=== PATIENT | female | born 1955 | race Caucasian/White ===

== ENCOUNTER 2020-02-01 11:29 | Inpatient (IN) | payer BC, OTHER ==
[2020-02-01] MEDS ORDERED: NA CHLORIDE 0.9% 1,000 ML ONE ×2 (12:15→14:06)
[2020-02-01] MEDS ORDERED: MORPHINE 2 MG/ML SYR ONE ×2 (12:15→14:25)
[2020-02-01] MEDS ORDERED: ONDANSETRON 4 MG/2 ML VIAL ONE ×2 (12:15→17:38)
[2020-02-01 12:31] LABS: Absolute Lymphocytes (CBC) 0.7 K/uL (0.7-4.9); Basophils % 0.1 % (0-1.3); Hematocrit 47.4 % (36.0-45.0); Lymphocytes % 2.5 % (15.3-44.8); MPV 10.1 fL (7.6-11.3); RBC Red Blood Cell Count 5.48 M/uL (3.86-4.86)
[2020-02-01 12:49] LABS: Albumin 3.6 g/dL (3.4-5.0); Bilirubin Direct 0.3 mg/dL (0-0.2); Potassium 3.3 mmol/L (3.5-5.1); Protein, Total 8.1 g/dL (6.4-8.2)
--- NOTE | 2020-02-01 13:29 | RAD REPORT ---
EXAM DESCRIPTION: CTAbdomen Pelvis W Contrast - 02/01/2020 1:13 pm CLINICAL HISTORY: Abdominal pain. ABD PAIN COMPARISON: No comparisons TECHNIQUE: Biphasic CT imaging of the abdomen and pelvis was performed with 100 ml non-ionic IV cont rast. All CT scans are performed using dose optimization technique as appropriate and may include automated exposure control or mA/KV adjustment according to patient size. FINDINGS: Linear subsegmental atelectasis is present in the left lung base. Moderate hiatal hernia. Several gallstones are present in the gallbladder. The liver, spleen, pancreas, left adrenal gland an d kidneys show no acute process. Nonspecific right adrenal mass is present measuring 23 mm. Mucosal thickening is present involving the colon from the level of the splenic flexure to the sigmoi d colon. Several diverticula are present in the sigmoid colon. Mild free fluid is seen in the pelvis. No pneumoperitoneum. No bowel obstruction. The appendix is not identified as a discrete structure, h owever, no secondary findings of appendicitis are identified. No evidence of significant lymphadeno jamee. Moderate lumbosacral degenerative changes. IMPRESSION: Moderate left-sided colitis pattern is present. Mild free fluid is seen in the pelvis. Sigmoid diverticulosis is seen without evidence of acute diverticulitis. Cholelithiasis. 23 mm nonspecific right adrenal mass. Consider followup nonemergent MR adrenal protocol. Moderate hiatal hernia.
[2020-02-01] MEDS ORDERED: CIPROFLOXACIN 400mg IV 400 MG/200 ML BAG IV ONE (14:06)
--- NOTE | 2020-02-01 14:06 | ER ---
Nurse's Notes [facility] Name: Светлана Burns Age: 64 yrs Sex: Female : 1955 Arrival Date: 02/01/2020 Time: 11:35 Bed 23 Private MD: Diagnosis: Infectious gastroenteritis and colitis, unspecified Presentation: 01/31 11:53 Chief complaint: Patient states: Abd pain with N/V for 24 hours. Sent by Ezekiel to r/o ll1 diverticulitis flare-up. Coronavirus screen: Proceed with normal triage. Patient denies a cough. Patient denies shortness of breath or difficulty breathing. Patient denies measured and/or subjective temperature greater than 100.4F prior to today's visit. Patient denies travel on a cruise ship or to a country the [facility] currently lists as an affected area. Patient denies contact with known and/or suspected case of COVID-19. Ebola Screen: Patient denies travel to an Ebola-affected area in the 21 days before illness onset. Initial Sepsis Screen: Does the patient meet any 2 criteria? No. Patient's initial sepsis screen is negative. Does the patient have a suspected source of infection? No. Patient's initial sepsis screen is negative. Risk Assessment: Do you want to hurt yourself or someone else? Patient reports no desire to harm self or others. Onset of symptoms was January 31, 2020. 11:53 Method Of Arrival: Wheelchair ll1 11:53 Acuity: RAE 3 ll1 Historical: - Allergies: 11:55 No Known Allergies; ll1 - PMHx: 11:55 Diverticulitis; Hypertension; GERD; ll1 - Immunization history:: Adult Immunizations up to date. - Social history:: Patient/guardian denies using alcohol, street drugs, tobacco products, Smoking status: Patient denies any tobacco usage or history of. Screenin:55 Abuse screen: Denies threats or abuse. Nutritional screening: No deficits noted. ll1 Tuberculosis screening: No symptoms or risk factors identified. Fall Risk None identified. IV access (20 points). Gait- Weak (10 pts.). Total Haddad Fall Scale indicates Low Risk Score (25-44 pts). Fall prevention measures have been instituted. Side Rails Up X 2 Frequent Obs/Assesments occuring As available Patient and Family Educated on Fall Prevention Program and strategies. Assessment: 12:19 General: Appears uncomfortable, Behavior is calm, cooperative, appropriate for age. ll1 Pain: Complains of pain in abdomen Pain currently is 10 out of 10 on a pain scale. Quality of pain is described as aching, Pain began 1 day ago. Neuro: No deficits noted. Cardiovascular: No deficits noted. Respiratory: No deficits noted. GI: Bowel sounds present X 4 quads. Abd is soft and non tender X 4 quads. Reports lower abdominal pain, upper abdominal pain, nausea, vomiting. : No deficits noted. 13:15 Reassessment: Patient appears in no apparent distress at this time. No changes from ll1 previously documented assessment. Patient and/or family updated on plan of care and expected duration. Pain level reassessed. Patient is alert, oriented x 3, equal unlabored respirations, skin warm/dry/pink. 14:15 Reassessment: Patient appears in no apparent distress at this time. No changes from ll1 previously documented assessment. Patient and/or family updated on plan of care and expected duration. Pain level reassessed. Patient is alert, oriented x 3, equal unlabored respirations, skin warm/dry/pink. 15:15 Reassessment: Patient appears in no apparent distress at this time. No changes from ll1 previously documented assessment. Patient and/or family updated on plan of care and expected duration. Pain level reassessed. Patient is alert, oriented x 3, equal unlabored respirations, skin warm/dry/pink. 16:15 Reassessment: Patient appears in no apparent distress at this time. No changes from ll1 previously documented assessment. Patient and/or family updated on plan of care and expected duration. Pain level reassessed. Patient is alert, oriented x 3, equal unlabored respirations, skin warm/dry/pink. 17:15 Reassessment: Patient appears in no apparent distress at this time. No changes from ll1 previously documented assessment. Patient and/or family updated on plan of care and expected duration. Pain level reassessed. Patient is alert, oriented x 3, equal unlabored respirations, skin warm/dry/pink. 18:15 Reassessment: Patient appears in no apparent distress at this time. No changes from ll1 previously documented assessment. Patient and/or family updated on plan of care and expected duration. Pain level reassessed. Patient is alert, oriented x 3, equal unlabored respirations, skin warm/dry/pink. 19:15 Reassessment: Patient appears in no apparent distress at this time. No changes from ll1 previously documented assessment. Patient and/or family updated on plan of care and expected duration. Pain level reassessed. Patient is alert, oriented x 3, equal unlabored respirations, skin warm/dry/pink. Vital Signs: 11:53 BP 120 / 78; Pulse 84; Resp 17; Temp 98.9; Pulse Ox 97% ; Pain 10/10; ll1 12:18 BP 137 / 73; Pulse 70; Resp 17; Pulse Ox 96% ; Pain 10/10; ll1 13:05 BP 143 / 66; Pulse 70; Resp 17; Pulse Ox 99% ; ll1 15:33 BP 136 / 74; Pulse 66; Resp 18; Pulse Ox 95% on R/A; ll1 18:14 BP 140 / 63; Pulse 72; Resp 17; Temp 98.5; Pulse Ox 95% ; ll1 19:34 BP 159 / 84; Pulse 72; Resp 17; Pulse Ox 95% on R/A; ll1 ED Course: 11:35 Patient arrived in ED. mr 11:46 Garret Pineda, MARKUS is Primary Nurse. ll1 11:47 Feng Dominguez PA is PHCP. cp 11:47 Luisito Manning MD is Attending Physician. cp 11:54 Triage completed. ll1 11:55 Arm band placed on Patient placed in an exam room, on a stretcher. ll1 12:05 Inserted saline lock: 20 gauge in right antecubital area, using aseptic technique. ll1 Blood collected. 12:18 Patient has correct armband on for positive identification. Bed in low position. Call ll1 light in reach. Side rails up X2. Pulse ox on. NIBP on. 12:58 Notified Nurse Practitioner and/or Physician Beauty Shop Manager of a critical lab result(s), sv [id number]. 13:12 CT Abd/Pelvis - IV Contrast Only In Process Unspecified. EDMS 13:23 CBC Smear Scan Sent. sv 14:06 Zev Berkowitz DO is Hospitalizing Provider. cp 19:40 No provider procedures requiring assistance completed. Patient admitted, IV remains in ll1 place. Administered Medications: 12:17 Drug: Zofran (Ondansetron) 4 mg Route: IVP; Site: right antecubital; 1 13:07 Follow up: Response: No adverse reaction; RASS: Alert and Calm (0) [facility] 12:17 Drug: NS 0.9% 1000 ml Route: IV; Rate: 1000 ml/hr; Site: right antecubital; 1 13:09 Follow up: Response: No adverse reaction; RASS: Alert and Calm (0); IV Status: ll1 Completed infusion; IV Intake: 1000ml 12:18 Drug: morphine 2 mg Route: IVP; Site: right antecubital; 1 13:07 Follow up: Response: No adverse reaction; Pain is decreased; RASS: Alert and Calm (0) [facility] 14:25 Drug: NS 0.9% 1000 ml Route: IV; Rate: 100 ml/hr; Site: right antecubital; 1 18:18 Follow up: Response: No adverse reaction; RASS: Alert and Calm (0); IV Status: Infusion 1 continued; IV Intake: 200ml 19:43 Follow up: Response: No adverse reaction; IV Status: Completed infusion; IV Intake: ll1 400ml 14:26 Drug: morphine 2 mg Route: IVP; Site: right antecubital; 1 17:32 Follow up: Response: No adverse reaction; Pain is decreased; RASS: Alert and Calm (0) [facility] 14:55 Drug: metroNIDAZOLE 500 mg Volume: 100 ml; Route: IVPB; Infused Over: 30 mins; Site: [facility] right antecubital; 16:18 Follow up: Response: No adverse reaction; RASS: Alert and Calm (0); IV Status: ll1 Completed infusion; IV Intake: 100ml 16:18 Drug: Ciprofloxacin 400 mg Volume: 200 ml; Route: IVPB; Infused Over: 60 mins; Site: [facility] right antecubital; 18:17 Follow up: Response: No adverse reaction; RASS: Alert and Calm (0); IV Status: ll1 Completed infusion; IV Intake: 200ml Intake: 13:09 IV: 1000ml; Total: 1000ml. 1 16:18 IV: 100ml; Total: 1100ml. 1 18:17 IV: 200ml; Total: 1300ml. 1 18:18 IV: 200ml; Total: 1500ml. 1 19:43 IV: 400ml; Total: 1900ml. 1 Outcome: 14:06 Decision to Hospitalize by Provider. cp 19:40 Admitted to Med/surg accompanied by tech, room 210, Report called to Leigh Reyes [facility] 19:40 Condition: stable 19:40 Instructed on the need for admit. 19:50 Patient left the ED. 1 Signatures: Dispatcher [employer] EDCarolina Deras RN RN sv Rivera, Mary mr Page, Corey, PA PA cp Lewis, Lynsay RN RN [facility]
[2020-02-01] MEDS ORDERED: METRONIDAZOLE 500mg IVPB 500 MG/100 ML BAG IV ONE (14:07)
--- NOTE | 2020-02-01 14:07 | EDPHYS ---
Physician Documentation [facility] Name: Светлана Burns Age: 64 yrs Sex: Female : 1955 Arrival Date: 02/01/2020 Time: 11:35 Bed 23 Private MD: ED Physician Luisito Manning HPI: 01/31 12:10 This 64 yrs old Female presents to ER via Wheelchair with complaints of cp Abdominal Pain, Vomiting. 12:10 The patient presents with abdominal pain in the lower abdomen. Onset: The cp symptoms/episode began/occurred 1 day(s) ago. The symptoms do not radiate. Associated signs and symptoms: Pertinent positives: nausea and vomiting, constipation, Pertinent negatives: blood in stools, chest pain, diarrhea, fever. The symptoms are described as constant. Modifying factors: the symptoms are aggravated by pressure. Historical: - Allergies: 11:55 No Known Allergies; ll1 - PMHx: 11:55 Diverticulitis; Hypertension; GERD; ll1 - Immunization history:: Adult Immunizations up to date. - Social history:: Patient/guardian denies using alcohol, street drugs, tobacco products, Smoking status: Patient denies any tobacco usage or history of. ROS: 12:15 Constitutional: Negative for body aches, chills, fever, poor PO intake. cp 12:15 Eyes: Negative for injury, pain, redness, and discharge. cp 12:15 ENT: Negative for ear pain, sore throat, difficulty swallowing, difficulty handling secretions. 12:15 Cardiovascular: Negative for chest pain, palpitations. 12:15 Respiratory: Negative for cough, wheezing. 12:15 Abdomen/GI: Positive for abdominal pain, nausea and vomiting, constipation, Negative for diarrhea, hematemesis, black/tarry stool, rectal bleeding. 12:15 : Negative for urinary symptoms. 12:15 Neuro: Negative for altered mental status, headache, weakness. 12:15 All other systems are negative. Exam: 12:15 Head/Face: Normocephalic, atraumatic. cp 12:15 Constitutional: The patient appears in no acute distress, alert, awake, non-diaphoretic, non-toxic, well developed, well nourished, uncomfortable. 12:15 Eyes: Periorbital structures: appear normal, Conjunctiva: normal, no exudate, no injection, Sclera: no appreciated abnormality, Lids and lashes: appear normal, bilaterally. 12:15 ENT: External ear(s): are unremarkable, Nose: is normal, Mouth: Lips: 12:15 Chest/axilla: Exam negative for Inspection: normal, Palpation: is normal, no crepitus, no tenderness. 12:15 Cardiovascular: Rate: normal, Rhythm: regular, Edema: is not appreciated, JVD: is not appreciated. 12:15 Respiratory: the patient does not display signs of respiratory distress, Respirations: normal, no use of accessory muscles, no retractions, labored breathing, is not present, Breath sounds: are clear throughout, no decreased breath sounds, no stridor, no wheezing. 12:15 Abdomen/GI: Inspection: abdomen appears normal, Bowel sounds: active, all quadrants, Palpation: soft, in all quadrants, moderate abdominal tenderness, in the right lower quadrant and left lower quadrant, rebound tenderness, is not appreciated, voluntary guarding, is elicited in the right lower quadrant and left lower quadrant. 12:15 Neuro: Orientation: to person, place \T\ time. Mentation: is normal. Vital Signs: 11:53 BP 120 / 78; Pulse 84; Resp 17; Temp 98.9; Pulse Ox 97% ; Pain 10/10; ll1 12:18 BP 137 / 73; Pulse 70; Resp 17; Pulse Ox 96% ; Pain 10/10; ll1 13:05 BP 143 / 66; Pulse 70; Resp 17; Pulse Ox 99% ; ll1 15:33 BP 136 / 74; Pulse 66; Resp 18; Pulse Ox 95% on R/A; ll1 18:14 BP 140 / 63; Pulse 72; Resp 17; Temp 98.5; Pulse Ox 95% ; ll1 19:34 BP 159 / 84; Pulse 72; Resp 17; Pulse Ox 95% on R/A; ll1 MDM: 11:56 Patient medically screened. cp 14:05 Data reviewed: vital signs, nurses notes, lab test result(s), radiologic studies, and cp as a result, I will admit patient. Counseling: I had a detailed discussion with the patient and/or guardian regarding: the historical points, exam findings, and any diagnostic results supporting the discharge/admit diagnosis, lab results, radiology results, the need for further work-up and treatment in the hospital. 01/31 12:05 Order name: Basic Metabolic Panel; Complete Time: 13:51 cp 01/31 12:05 Order name: CBC with Diff cp 01/31 12:05 Order name: Hepatic Function; Complete Time: 13:51 cp 01/31 12:05 Order name: Lipase; Complete Time: 13:51 cp 01/31 12:05 Order name: Urine Microscopic Only cp 01/31 13:04 Order name: CBC Smear Scan EDIN 01/31 13:58 Order name: Procalcitonin 01/31 13:58 Order name: Lactate; Complete Time: 14:59 cp 01/31 13:58 Order name: Blood Culture Pedi (1) cp 01/31 17:51 Order name: Basic Metabolic Panel EDIN 01/31 17:51 Order name: Basic Metabolic Panel EDIN 01/31 17:51 Order name: CBC with Automated Diff EDIN 01/31 17:51 Order name: CBC with Automated Diff EDIN 01/31 17:51 Order name: Procalcitonin EDIN 01/31 12:05 Order name: IV Saline Lock; Complete Time: 12:05 cp 01/31 12:05 Order name: Labs collected and sent; Complete Time: 12:06 cp 01/31 12:05 Order name: Urine Dipstick-Ancillary (obtain specimen); Complete Time: 18:18 cp 01/31 13:01 Order name: CT Abd/Pelvis - IV Contrast Only; Complete Time: 13:51 cp 01/31 17:51 Order name: CONS Physician Consult EDIN 01/31 17:51 Order name: NPO EDIN 01/31 17:51 Order name: Procalcitonin EDIN 01/31 18:02 Order name: Urine Dipstick--Ancillary (enter results) bd 01/31 18:45 Order name: Urine Dipstick-Ancillary EDIN Administered Medications: 12:17 Drug: Zofran (Ondansetron) 4 mg Route: IVP; Site: right antecubital; ll1 13:07 Follow up: Response: No adverse reaction; RASS: Alert and Calm (0) ll1 12:17 Drug: NS 0.9% 1000 ml Route: IV; Rate: 1000 ml/hr; Site: right antecubital; ll1 13:09 Follow up: Response: No adverse reaction; RASS: Alert and Calm (0); IV Status: ll1 Completed infusion; IV Intake: 1000ml 12:18 Drug: morphine 2 mg Route: IVP; Site: right antecubital; 1 13:07 Follow up: Response: No adverse reaction; Pain is decreased; RASS: Alert and Calm (0) [facility] 14:25 Drug: NS 0.9% 1000 ml Route: IV; Rate: 100 ml/hr; Site: right antecubital; 1 18:18 Follow up: Response: No adverse reaction; RASS: Alert and Calm (0); IV Status: Infusion ll1 continued; IV Intake: 200ml 19:43 Follow up: Response: No adverse reaction; IV Status: Completed infusion; IV Intake: ll1 400ml 14:26 Drug: morphine 2 mg Route: IVP; Site: right antecubital; 1 17:32 Follow up: Response: No adverse reaction; Pain is decreased; RASS: Alert and Calm (0) [facility] 14:55 Drug: metroNIDAZOLE 500 mg Volume: 100 ml; Route: IVPB; Infused Over: 30 mins; Site: ll right antecubital; 16:18 Follow up: Response: No adverse reaction; RASS: Alert and Calm (0); IV Status: ll1 Completed infusion; IV Intake: 100ml 16:18 Drug: Ciprofloxacin 400 mg Volume: 200 ml; Route: IVPB; Infused Over: 60 mins; Site: ll right antecubital; 18:17 Follow up: Response: No adverse reaction; RASS: Alert and Calm (0); IV Status: ll1 Completed infusion; IV Intake: 200ml Disposition: 02/01/20 14:06 Hospitalization ordered by Zev Berkowitz for Inpatient Admission. Preliminary diagnosis is Infectious gastroenteritis and colitis, unspecified. - Bed requested for Telemetry/MedSurg (Inpatient). - Status is Inpatient Admission. ll1 - Condition is Stable. - Problem is new. - Symptoms have improved. Addendum: 02/08/2020 07:08 Co-signature as Attending Physician, Luisito Manning MD. r n Signatures: Dispatcher [employer] EDLuisito Bear MD MD rn Smirch, Shelby, RN RN ss Attema, Lee, OUTREACH WORKER-C OUTREACH WORKER-Cla1 Feng Dominguez PA PA cp Lewis, Lynsay, RN RN ll1 Corrections: (The following items were deleted from the chart) 01/31 18:09 14:06 Hospitalization Ordered by Zev Berkowitz DO for Inpatient Admission. Preliminary ss diagnosis is Infectious gastroenteritis and colitis, unspecified. Bed requested for Telemetry/MedSurg (Inpatient). Status is Inpatient Admission. Condition is Stable. Problem is new. Symptoms have improved. cp 19:50 18:09 02/01/2020 14:06 Hospitalization Ordered by Zev Berkowitz DO for Inpatient ll1 Admission. Preliminary diagnosis is Infectious gastroenteritis and colitis, unspecified. Bed requested for Telemetry/MedSurg (Inpatient). Status is Inpatient Admission. Condition is Stable. Problem is new. Symptoms have improved. ss
--- NOTE | 2020-02-01 15:27 | P.HP ---
Certification for Inpatient Patient admitted to: Inpatient With expected LOS: >2 Midnights Patient will require the following post-hospital care: None Practitioner: I am a practitioner with admitting privileges, knowledge of patient current condition, hospital course, and medical plan of care. Services: Services provided to patient in accordance with Admission requirements found in Title 42 Section 412.3 of the Code of Federal Regulations <Cy Herron - Last Filed: 02/01/20 15:17> Patient admitted to: Inpatient With expected LOS: >2 Midnights <Zev Berkowitz - Last Filed: 02/01/20 17:10> Patient History Date of Service: 02/01/20 Primary Care Provider: Neto Reason for admission: Moderate left colitis History of Present Illness: 64-year-old female with history of hypertension, hypothyroidism, diverticulitis presented to the emergency department with a 1 day history of left-sided abdominal pain, nausea, and vomiting. During her evaluation in the emergency department patient was found to have an elevated white blood cell count at 27, a low potassium at 3.3, and a CT scan showing a moderate left colitis with mild free fluid in the pelvis without signs of perforation or abscess. At this time. ER provider reached out to the hospitalist team for further evaluation management. When I saw the patient in the emergency department she appeared uncomfortable. Vital signs were within normal limits. Patient did not appear septic. Patient reported that she has been unable to tolerate anything by mouth throughout the course of the day. Patient will be admitted for further evaluation and this condition. Home medications list reviewed: Yes - Past Medical/Surgical History Has patient received pneumonia vaccine in the past: No Diabetic: No -: Hypertension -: Hypothyroidism -: GERD -: Tubal ligation -: D and C Psychosocial/ Personal History: Patient lives at home with her - Social History Smoking Status: Never smoker Alcohol use: No CD- Drugs: No Caffeine use: Yes Place of Residence: Home <Cy Herron - Last Filed: 02/01/20 15:17> Date of Service: 02/01/20 History of Present Illness: Patient seen and examined. Case discussed at length with nurse practitioner. Agree with physical exam, evaluation, and plan of care. - Family History Family History: Reviewed- Non-Contributory <Zev Berkowitz - Last Filed: 02/01/20 17:10> Review of Systems General: Unremarkable Eyes: Unremarkable ENT: Unremarkable Respiratory: Unremarkable Cardiovascular: Unremarkable Gastrointestinal: Nausea, Vomiting, Abdominal Pain Genitourinary: Unremarkable Musculoskeletal: Unremarkable Neurological: Unremarkable <Cy Herron - Last Filed: 02/01/20 15:17> Lymphatics: Unremarkable <Zev Berkowitz - Last Filed: 02/01/20 17:10> Physical Examination - Physical Exam General: Alert, In no apparent distress, Oriented x3 HEENT: Atraumatic, Normocephalic Neck: Supple Respiratory: Clear to auscultation bilaterally, Normal air movement Cardiovascular: No edema, Normal pulses Capillary refill: <2 Seconds Gastrointestinal: Normal bowel sounds, Tenderness (Moderate left-sided abdominal tenderness) Musculoskeletal: No clubbing, No swelling Integumentary: No rashes Neurological: Normal speech, Normal tone Lymphatics: No axilla or inguinal lymphadenopathy - Studies Laboratory Data (last 24 hrs) 02/01/20 12:00: WBC 27.6 H*, Hgb 15.5 H, Hct 47.4 H, Plt Count 275 02/01/20 12:00: Sodium 139, Potassium 3.3 L, BUN 22 H, Creatinine 1.03, Glucose 195 H, Total Bilirubin 1.0, AST 14 L, ALT 60, Alkaline Phosphatase 197 H, Lipase 93 <Cy Herron - Last Filed: 02/01/20 15:17> - Physical Exam Cardiovascular: Regular rate/rhythm Gastrointestinal: No masses, No rebound, No guarding - Studies Laboratory Data (last 24 hrs) 02/01/20 12:00: WBC 27.6 H*, Hgb 15.5 H, Hct 47.4 H, Plt Count 275 02/01/20 12:00: Sodium 139, Potassium 3.3 L, BUN 22 H, Creatinine 1.03, Glucose 195 H, Total Bilirubin 1.0, AST 14 L, ALT 60, Alkaline Phosphatase 197 H, Lipase 93 <Zev Berkowitz - Last Filed: 02/01/20 17:10> Assessment and Plan - Plan Assessment Acute moderate left-sided colitis with significantly elevated white blood cell count Dehydration secondary to nausea and vomiting Hypokalemia GERD Hypertension Hypothyroidism Plan Acute moderate left-sided colitis with significantly elevated white blood cell count-blood cultures obtained in the emergency department, will await results. Patient placed on IV antibiotics. Patient to remain NPO at this time as she is not tolerate any fluids or food. General surgery has been consulted on this case. Will provide pain and nausea medications as needed. DVT prophylaxis with Lovenox. Appreciate input from general surgery. Dehydration secondary to nausea and vomiting- IV fluids ordered in addition to bolus the patient received in the emergency department. Patient will be provided with nausea medication as needed. Patient to remain NPO at this time, will advance diet as tolerated tomorrow. Hypokalemia- patient we placed on potassium replacement protocol and on telemetry. Will repeat BMP in the morning. GERD- will obtain and continue patient's home medications. Hypertension-will obtain and continue patient's home medications. Hypothyroidism- will obtain and continue patient's home medications. Discharge Plan: Home Plan to discharge in: 48 Hours - Advance Directives Does patient have a Living Will: No Does patient have a Durable POA for Healthcare: No - Code Status/Comfort Care Code Status Assessed: Yes (Patient is full code) Critical Care: No Time Spent Managing Pts Care (In Minutes): 55 <Cy Herron - Last Filed: 02/01/20 15:17> - Plan Patient seen and examined. Case discussed at length with nurse practitioner. Agree with plan of care. CT scan revealed moderate left-sided colitis. No evidence of acute diverticulitis. Cholelithiasis noted. 23 mm nonspecific right adrenal mass noted hernia also noted. Will continue with patient's medications. Will start clear liquid diet as the patient's abdominal pain has significantly improved. Continue IV antibiotic therapy and IV fluids. Will consult surgery for recommendation. Patient will require colonoscopy in 4-6 weeks. Will continue monitor closely. <Zev Berkowitz - Last Filed: 02/01/20 17:10>
[2020-02-01 15:48] LABS: Urine White Blood Cell Casts OK
[2020-02-01 15:49] LABS: Anisocytosis 1+; Blood Morphology Comment NOTED (NOT SEEN); Platelet Estimate ADEQ; Poikilocytosis 1+
[2020-02-01] MEDS ORDERED: NA CHLORIDE 0.9% 1,000 ML IV SCH (17:45)
[2020-02-01] MEDS ORDERED: ACETAMINOPHEN 500 MG TAB PO PRN (17:45)
[2020-02-01 18:43] LABS: Urine Bacteria 20-50 /HPF (<20); Urine Culture Reflex Order REFLEXED; Urine RBC <5 /HPF (NONE SEEN)
[2020-02-01 18:45] LABS: Urine Blood NEGATIVE (NEG); Urine Glucose NEGATIVE (NEG); Urine Protein NEGATIVE (NEG); Urine Specific Gravity 1.015 (1.005-1.030)
[2020-02-01] MEDS: ONDANSETRON 4 MG/2 ML VIAL IV PRN (20:23)
[2020-02-01] MEDS: D5.45NS W/KCL 20MEQ 20 MEQ/1,000 ML BAG IV SCH (20:26)
[2020-02-01] MEDS: ENOXAPARIN 40 MG/0.4 ML SQ SCH (22:40)
[2020-02-01] MEDS: CIPROFLOXACIN 400mg IV 400 MG/200 ML BAG IV SCH (22:40)
--- NOTE | 2020-02-02 00:08 | CON ---
Date of Consultation: 02/01/2020 Brief History Of Present Illness: Patient is a 64-year-old female with a history of hypert ension, hypothyroidism, and diverticulosis, who presents to the emergency department with a 1-day his tory of left-sided abdominal pain in the suprapubic area as well as associated with nausea and vomiti ng. She has had no constipation, no diarrhea, no change in bowel or bladder habits otherwise. She h as noted that she had exposure to what she believes is food poisoning approximately on Mother's Day o r about there. She had nausea and vomiting associated with eating some shrimp at a local [email or web address]. However, she believes she recovered from that and she developed nausea, vomiting, and the symptoms as described 1 day ago. She does not have any other food exposures by her description. She denies any sick contacts or recent travel. No COVID exposures. Her pain is significantly sara r after being brought to the emergency room. She has had a colonoscopy before in the past, which hanh wed diverticulosis she states in 2011 and a benign polyp. Past Medical History: Significant for hypertension, hypothyroidism, GERD. Past Surgical History: Includes a tubal ligation, D and C. Social History: She lives at home with her . She denies smoking, alcohol, or recreational dr ug use. Review of Systems: Ten-point review of systems other than in HPI, denies. Physical Examination: General: She is awake, alert, and oriented. Psychiatric: She is appropriate and conversive. HEENT: She is normocephalic. Her sclerae are anicteric. Mucous membranes are dry. Oropharynx is c lear. She had poor dentition. Neck: Supple. No JVD. CHEST: Normal expansion and excursion. Cardiovascular: Regular rate and rhythm. Pulmonary: Clear to auscultation bilaterally. Abdomen: Soft, nontender, nondistended. No rebound. No guarding. No focal peritonitis. Extremities: No clubbing, cyanosis, or edema. Skin: Warm and dry. Laboratory Data: Reveals a white blood cell count of 27.6, hemoglobin is 15.5, hematocrit of 47.4, n eutrophils 91%, her platelets are 275. Her sodium is 139, potassium 3.3, chloride 104, carbon dioxid e 25, BUN 22, creatinine 1.03, glucose 195. Lactic acid 1.4. Total bilirubin is 1.0, direct bili 0. 3, AST 14, ALT 60, alkaline phosphatase 187. Her lipase is 93. Her UA showed white blood cells and bacteria. Imaging Studies: She had imaging performed, which included a CT abdomen and pelvis, officially read as moderate left-sided colitis pattern present, mild free fluid is seen in the pelvis. Sigmoid diver ticulosis is seen without evidence of acute diverticulitis and cholelithiasis, 23 mm nonspecific righ t adrenal mass. Followup MRI nonemergent, had moderate hiatal hernia. Assessment And Plan: This is a 64-year-old female, who comes in with signs and symptoms of a nonspec ific left colitis. 1.IV fluid hydration. 2.N.p.o. 3.Antibiotic coverage. 4.Serial abdominal exams. 5.Recommend followup colonoscopy after patient resolve from the episode of colitis. No emergent nee d for endoscopy at this point. Continue medical management. I will follow along with you. Thank you for this interesting consult. QUEENIE/MARLYN Voice ID: [id number] Report ID: [id number]
[2020-02-02] MEDS: METRONIDAZOLE 500mg IVPB 500 MG/100 ML BAG IV SCH ×2 (01:34→09:58)
[2020-02-02 01:58] VITALS: BMI 27.1
[2020-02-02] MEDS: ONDANSETRON 4 MG/2 ML VIAL IV PRN ×2 (02:49→11:08)
[2020-02-02 05:29] LABS: Absolute Lymphocytes (CBC) 0.8 K/uL (0.7-4.9); Basophils % 0.2 % (0-1.3); Lymphocytes % 3.4 % (15.3-44.8); MPV 10.1 fL (7.6-11.3); RBC Red Blood Cell Count 4.88 M/uL (3.86-4.86)
[2020-02-02 05:49] LABS: Potassium 3.5 mmol/L (3.5-5.1)
[2020-02-02] MEDS: D5.45NS W/KCL 20MEQ 20 MEQ/1,000 ML BAG IV SCH ×3 (05:53→20:46)
[2020-02-02] MEDS ORDERED: KCL 20 MEQ/100 mL IVPB 20 MEQ/100 ML BAG IV SCH (06:00)
[2020-02-02] MEDS ORDERED: PNEUMOCOCCAL VACCINE 0.5 ML IMVAC ONE (09:00)
[2020-02-02] MEDS: ENOXAPARIN 40 MG/0.4 ML SQ SCH (09:48)
[2020-02-02] MEDS: CIPROFLOXACIN 400mg IV 400 MG/200 ML BAG IV SCH (11:08)
[2020-02-02] MEDS: MORPHINE 2 MG/ML SYR IV PRN (11:54)
--- NOTE | 2020-02-02 15:23 | P.PN ---
Subjective Date of Service: 02/02/20 Primary Care Provider: Neto Chief Complaint: Moderate left colitis Subjective: Improving, Other (Patient desires to eat.) Physical Examination - Vital Signs Temperature: 97.8 F Blood Pressure: 129/65 Pulse: 66 Respirations: 16 Pulse Ox (%): 95 - Physical Exam General: Alert, In no apparent distress, Oriented x3, Cooperative HEENT: Atraumatic, Other (Dry mucous membranes) Neck: Supple Respiratory: Clear to auscultation bilaterally, Normal air movement Cardiovascular: Normal pulses, Regular rate/rhythm Gastrointestinal: Normal bowel sounds, Soft and benign, Non-distended, No tenderness, No masses, No rebound, No guarding Musculoskeletal: No erythema, No tenderness, No warmth Neurological: Normal speech, Normal strength at 5/5 x4 extr, Normal tone, Normal affect - Studies Medications List Reviewed: Yes Assessment & Plan Discharge Plan: Home Plan to discharge in: 24 Hours Physician Review Additional Text: Assessment Acute moderate left-sided colitis with significantly elevated white blood cell count Dehydration secondary to nausea and vomiting Hypokalemia GERD Hypertension Hypothyroidism Plan Acute moderate left-sided colitis with significantly elevated white blood cell count-patient has done well. Will continue to advance diet. Will continue IV antibiotic therapy and fluids. Will discuss further with surgery. Anticipate discharge in the next 24-48 hr with clinical improvement. Dehydration secondary to nausea and vomiting- continue IV fluids. Will monitor closely. Hypokalemia- patient we placed on potassium replacement protocol and on telemetry. Will repeat BMP in the morning. GERD- will obtain and continue patient's home medications. Hypertension-will obtain and continue patient's home medications. Hypothyroidism- will obtain and continue patient's home medications. Time Spent Managing Pts Care (In Minutes): 55
--- NOTE | 2020-02-02 15:45 | P.PN ---
Subjective Date of Service: 02/02/20 Primary Care Provider: Neto Chief Complaint: Moderate left colitis Subjective: Improving (Patient has improvement of symptoms, but continues to have some suprapubic pain) Physical Examination - Vital Signs Temperature: 97.8 F Blood Pressure: 129/65 Pulse: 66 Respirations: 16 Pulse Ox (%): 95 - Physical Exam General: Alert, In no apparent distress, Cooperative Respiratory: Clear to auscultation bilaterally Gastrointestinal: Soft and benign, Non-distended, No ascites, No tenderness, No masses, No rebound, No guarding - Studies Medications List Reviewed: Yes Assessment And Plan - Current Problems (Diagnosis) (1) Colitis Current Visit: Yes Status: Acute Plan: - clear liquid diet - stool culture - consider zosyn - serial exams Physician Review Additional Text: Assessment Acute moderate left-sided colitis with significantly elevated white blood cell count Dehydration secondary to nausea and vomiting Hypokalemia GERD Hypertension Hypothyroidism Plan Acute moderate left-sided colitis with significantly elevated white blood cell count-patient has done well. Will continue to advance diet. Will continue IV antibiotic therapy and fluids. Will discuss further with surgery. Anticipate discharge in the next 24-48 hr with clinical improvement. Dehydration secondary to nausea and vomiting- continue IV fluids. Will monitor closely. Hypokalemia- patient we placed on potassium replacement protocol and on telemetry. Will repeat BMP in the morning. GERD- will obtain and continue patient's home medications. Hypertension-will obtain and continue patient's home medications. Hypothyroidism- will obtain and continue patient's home medications.
[2020-02-02] MEDS: PIPER/TAZO/NS 3.375gm 3.375 GM/100 ML BAG IVPB SCH (16:52)
[2020-02-03] MEDS: PIPER/TAZO/NS 3.375gm 3.375 GM/100 ML BAG IVPB SCH ×3 (00:15→16:28)
[2020-02-03] MEDS: D5.45NS W/KCL 20MEQ 20 MEQ/1,000 ML BAG IV SCH ×3 (03:54→20:00)
[2020-02-03] MEDS: LEVOTHYROXINE SOD 0.125 MG TAB PO SCH (05:05)
[2020-02-03 06:07] LABS: Absolute Lymphocytes (CBC) 1.2 K/uL (0.7-4.9); Basophils % 0.2 % (0-1.3); Hematocrit 40.2 % (36.0-45.0); Lymphocytes % 6.8 % (15.3-44.8); MPV 10.3 fL (7.6-11.3); RBC Red Blood Cell Count 4.62 M/uL (3.86-4.86)
[2020-02-03 06:25] LABS: Potassium 3.9 mmol/L (3.5-5.1)
--- NOTE | 2020-02-03 08:36 | RAD REPORT ---
EXAM DESCRIPTION: RAD - Abdomen 1 View (KUB) - 02/03/2020 8:23 am CLINICAL HISTORY: follow up ab pain Pain COMPARISON: Abdomen Pelvis W Contrast dated 02/01/2020 FINDINGS: Prominent distention of the colon with air is seen. The distal colon appears largely decom pressed. There is a large amount of retained stool in the right colon. No free intraperitoneal air se en.
[2020-02-03] MEDS: ENOXAPARIN 40 MG/0.4 ML SQ SCH (09:06)
[2020-02-03 10:38] VITALS: O2SAT 94
[2020-02-03] MEDS: ONDANSETRON 4 MG/2 ML VIAL IV PRN (13:14)
--- NOTE | 2020-02-03 14:41 | P.PN ---
Subjective Date of Service: 02/03/20 Primary Care Provider: Neto Chief Complaint: Moderate left colitis Subjective: Other (Patient has improved since last night. She did have some nausea with clear liquids. She is much improved. Less pain noted.) Physical Examination - Vital Signs Temperature: 98.3 F Blood Pressure: 143/76 Pulse: 70 Respirations: 18 Pulse Ox (%): 93 - Physical Exam General: Alert, In no apparent distress, Oriented x3, Cooperative HEENT: Atraumatic Neck: Supple Respiratory: Clear to auscultation bilaterally, Normal air movement Cardiovascular: Normal pulses, Regular rate/rhythm Gastrointestinal: Normal bowel sounds, Soft and benign, Non-distended, No tenderness, No masses, No rebound, No guarding Neurological: Normal speech, Normal strength at 5/5 x4 extr, Normal tone, Normal affect - Studies Laboratory Data (last 24 hrs) 02/03/20 05:29: WBC 18.0 H D, Hgb 13.1, Hct 40.2, Plt Count 202 02/03/20 05:29: Sodium 140, Potassium 3.9, BUN 14, Creatinine 0.94, Glucose 158 H, Magnesium 2.0 Medications List Reviewed: Yes Assessment & Plan Discharge Plan: Home Plan to discharge in: 48 Hours Physician Review Additional Text: Assessment Acute moderate left-sided colitis with leukocytosis Dehydration secondary to nausea and vomiting UTI Hypokalemia GERD Hypertension Hypothyroidism Plan Acute moderate left-sided colitis with leukocytosis: Patient has improved. Will slowly advance diet. Continue IV antibiotic therapy and IV fluids. Case discussed with surgery. Anticipate improvement in the next 24 hr. Encourage ambulation. Encourage incentive spirometer. Possible discharge as early as tomorrow. Dehydration secondary to nausea and vomiting: Continue IV fluids. Encourage oral intake. Hypokalemia: Continue to monitor and replace. Electrolyte protocol in place. GERD: Will provide medication. - will obtain and continue patient's home medications. Hypertension: Continue to monitor closely. Will need to verify home medication. Patient may require medication at discharge. Hypothyroidism: Continue home medication Time Spent Managing Pts Care (In Minutes): 55
[2020-02-03] MEDS ORDERED: HYDROCODONE/APAP 7.5/325 MG TAB PO PRN (15:04)
[2020-02-03] MEDS ORDERED: TRAMADOL HCL 50 MG TAB PO PRN (15:04)
[2020-02-03] MEDS ORDERED: HYDRALAZINE HCL 20 MG/ML VIAL IV PRN (15:08)
--- NOTE | 2020-02-03 15:23 | P.PN ---
Subjective Date of Service: 02/03/20 Primary Care Provider: Neto Chief Complaint: Moderate left colitis Subjective: Improving (Patient continues to improve, passing gas, no BM, no nasuea, pain improving) Physical Examination - Vital Signs Temperature: 98.3 F Blood Pressure: 143/76 Pulse: 70 Respirations: 18 Pulse Ox (%): 93 - Physical Exam General: Alert, In no apparent distress, Cooperative HEENT: Mucous membr. moist/pink Respiratory: Normal air movement Gastrointestinal: Soft and benign, No ascites, No tenderness, No masses, No rebound, No guarding - Studies Laboratory Data (last 24 hrs) 02/03/20 05:29: WBC 18.0 H D, Hgb 13.1, Hct 40.2, Plt Count 202 02/03/20 05:29: Sodium 140, Potassium 3.9, BUN 14, Creatinine 0.94, Glucose 158 H, Magnesium 2.0 Medications List Reviewed: Yes Assessment And Plan - Current Problems (Diagnosis) (1) Colitis Current Visit: Yes Status: Acute Plan: - advance diet - stool culture - consider zosyn - serial exams Physician Review Additional Text: Assessment Acute moderate left-sided colitis with significantly elevated white blood cell count Dehydration secondary to nausea and vomiting UTI Hypokalemia GERD Hypertension Hypothyroidism Plan Acute moderate left-sided colitis with significantly elevated white blood cell count-patient has done well. Will continue to advance diet. Will continue IV antibiotic therapy and fluids. Will discuss further with surgery. Anticipate discharge in the next 24-48 hr with clinical improvement. Dehydration secondary to nausea and vomiting- continue IV fluids. Will monitor closely. Hypokalemia- patient we placed on potassium replacement protocol and on t elemetry. Will repeat BMP in the morning. GERD- will obtain and continue patient's home medications. Hypertension-will obtain and continue patient's home medications. Hypothyroidism- will obtain and continue patient's home medications.
[2020-02-03] MEDS: FAMOTIDINE 20 MG TAB PO SCH (20:17)
[2020-02-03] MEDS: DOCUSATE NA 100 MG CAP PO PRN (20:18)
[2020-02-03] MEDS: MORPHINE 2 MG/ML SYR IV PRN (20:18)
[2020-02-04] MEDS: PIPER/TAZO/NS 3.375gm 3.375 GM/100 ML BAG IVPB SCH ×2 (00:16→07:42)
[2020-02-04] MEDS: D5.45NS W/KCL 20MEQ 20 MEQ/1,000 ML BAG IV SCH ×3 (02:22→11:00)
[2020-02-04 04:39] LABS: Basophils % 0.4 % (0-1.3); Hematocrit 37.6 % (36.0-45.0); Lymphocytes % 9.3 % (15.3-44.8); MPV 10.2 fL (7.6-11.3)
[2020-02-04] MEDS: LEVOTHYROXINE SOD 0.125 MG TAB PO SCH (05:05)
[2020-02-04] MEDS: ENOXAPARIN 40 MG/0.4 ML SQ SCH (07:42)
[2020-02-04] MEDS: ONDANSETRON 4 MG/2 ML VIAL IV PRN (07:42)
[2020-02-04] MEDS: FAMOTIDINE 20 MG TAB PO SCH ×2 (07:43→07:45)
[2020-02-04] MEDS: DOCUSATE NA 100 MG CAP PO PRN (07:43)
--- NOTE | 2020-02-04 10:58 | P.PN ---
Subjective Date of Service: 02/04/20 Primary Care Provider: Neto Chief Complaint: Moderate left colitis Subjective: Improving (Patient feels better. No significant pain noted. No nausea noted. Will see if she tolerates GI soft diet.) Physical Examination - Vital Signs Temperature: 97.2 F Blood Pressure: 179/80 Pulse: 59 Respirations: 18 Pulse Ox (%): 97 - Physical Exam General: Alert, In no apparent distress, Oriented x3, Cooperative HEENT: Atraumatic Neck: Supple Respiratory: Clear to auscultation bilaterally, Normal air movement Cardiovascular: Normal pulses, Regular rate/rhythm Gastrointestinal: Normal bowel sounds, Soft and benign, Non-distended, No ascites, No tenderness, No masses, No rebound, No guarding Musculoskeletal: No erythema, No tenderness, No warmth Integumentary: No tenderness/swelling, No erythema, No warmth, No cyanosis Neurological: Normal speech, Normal strength at 5/5 x4 extr, Normal tone, Normal affect - Studies Microbiology Data (last 24 hrs): 02/01/20 17:45 Clean Catch Urine [place] Count - Final BETWEEN 10,000 & 100,000 CFU/ML 02/01/20 17:45 Clean Catch Urine - Final MIXED [place]AN[place]. Medications List Reviewed: Yes Assessment & Plan Discharge Plan: Home Plan to discharge in: 24 Hours Physician Review Additional Text: Assessment Acute moderate left-sided colitis with significantly elevated white blood cell count Dehydration secondary to nausea and vomiting UTI Hypokalemia GERD Hypertension Hypothyroidism Plan Acute moderate left-sided colitis with significantly elevated white blood cell count: Patient has done well. Will advance diet to GI soft. If able tolerate and doing well will consider discharge later today or tomorrow morning. Will reassess after lunchtime. Dehydration secondary to nausea and vomiting: Continue IV fluids. Encourage oral intake. Hypokalemia: Replace in protocol in place. GERD: Continue medication Hypertension: Will need to verify if patient is taking medication at home. Blood pressure stable this time. Will consider adding medication if required. Hypothyroidism: Obtain and restart home medication Time Spent Managing Pts Care (In Minutes): 55
--- NOTE | 2020-02-04 15:10 | P.PN ---
Subjective Date of Service: 02/04/20 Primary Care Provider: Neto Chief Complaint: Moderate left colitis Subjective: Improving (Tolerating diet well, +bm, pain resolved) Physical Examination - Vital Signs Temperature: 97.8 F Blood Pressure: 150/66 Pulse: 59 Respirations: 18 Pulse Ox (%): 95 - Physical Exam General: Alert, In no apparent distress, Cooperative HEENT: Mucous membr. moist/pink Respiratory: Clear to auscultation bilaterally Cardiovascular: Normal S1 S2 Gastrointestinal: Soft and benign, Non-distended, No ascites, No tenderness, No masses, No rebound, No guarding - Studies Microbiology Data (last 24 hrs): 02/01/20 17:45 Clean Catch Urine [place] Count - Final BETWEEN 10,000 & 100,000 CFU/ML 02/01/20 17:45 Clean Catch Urine - Final MIXED [place]. Medications List Reviewed: Yes Assessment And Plan - Current Problems (Diagnosis) (1) Colitis Current Visit: Yes Status: Acute Plan: - advance diet - stool culture - DC home soon - serial exams Physician Review Additional Text: Assessment Acute moderate left-sided colitis with significantly elevated white blood cell count Dehydration secondary to nausea and vomiting UTI Hypokalemia GERD Hypertension Hypothyroidism Plan Acute moderate left-sided colitis with significantly elevated white blood cell count: Patient has done well. Will advance diet to GI soft. If able tolerate and doing well will consider discharge later today or tomorrow morning. Will reassess after lunchtime. Dehydration secondary to nausea and vomiting: Continue IV fluids. Encourage oral intake. Hypokalemia: Replace in protocol in place. GERD: Continue medication Hypertension: Will need to verify if patient is taking medication at home. Blood pressure stable this time. Will consider adding medication if required. Hypothyroidism: Obtain and restart home medication
--- NOTE | 2020-02-04 15:26 | P.DS ---
Admission Date: 02/03/20 Discharge Date: 02/04/20 Primary Care Provider: Neto Disposition: ROUTINE DISCHARGE Discharge Condition: GOOD Reason for Admission: Moderate left colitis Consultations: Surgery-Dr. King Procedures: CT Scan: FINDINGS: Linear subsegmental atelectasis is present in the left lung base. Moderate hiatal hernia. Several gallstones are present in the gallbladder. The liver, spleen, pancreas, left adrenal gland and kidneys show no acute process. Nonspecific right adrenal mass is present measuring 23 mm. Mucosal thickening is present involving the colon from the level of the splenic flexure to the sigmoid colon. Several diverticula are present in the sigmoid colon. Mild free fluid is seen in the pelvis. No pneumoperitoneum. No bowel obstruction. The appendix is not identified as a discrete structure, however, no secondary findings of appendicitis are identified. No evidence of significant lymphadenopathy. Moderate lumbosacral degenerative changes. IMPRESSION: Moderate left-sided colitis pattern is present. Mild free fluid is seen in the pelvis. Sigmoid diverticulosis is seen without evidence of acute diverticulitis. Cholelithiasis. 23 mm nonspecific right adrenal mass. Consider followup nonemergent MR adrenal protocol. Moderate hiatal hernia. Medical problem list: Acute moderate left-sided colitis with significantly elevated white blood cell count Dehydration secondary to nausea and vomiting Hypokalemia GERD with moderate hiatal hernia Hypertension Hypothyroidism CT finding of 23 mm nonspecific right adrenal mass, diverticulosis without diverticulitis and cholelithiasis Brief History of Present Illness: 64-year-old female with history of GERD/hiatal hernia, hypertension, hypothyroidism and diverticulosis. Patient presented with left-sided abdominal pain with nausea and vomiting. Patient was found to have acute moderate left- sided colitis. Patient was admitted for further evaluation and treatment. Hospital Course: Patient admitted with left-sided abdominal pain, nausea and vomiting. Patient found to have acute moderate left-sided colitis. Patient required hospitalization. Patient was given IV fluids and antibiotic therapy. Patient also seen by surgery. No surgical intervention was required. Patient did well during the course of her stay. At discharge she is without significant nausea, vomiting or abdominal pain. At discharge she will continue with Cipro 500 mg twice daily and Flagyl 500 mg 3 times a day for 7 days. Education on colitis will be provided. Patient will also be sent home with lactobacillus twice daily. Patient will also be provided docusate 100 mg daily as needed for constipation. It is recommended that the patient follow up with surgery in 2-4 weeks to follow up this hospitalization. Patient will need a colonoscopy in 4-6 weeks to further monitor and address. Patient has GERD with moderate hiatal hernia. This is stable. At discharge she may continue with Prilosec daily. If this persists she may see GI as an outpatient for endoscopy evaluation. Patient with hypertension. This has remained stable. At discharge she will continue with Norvasc 10 mg daily. Recommend to maintain blood pressure less 150/80. Further adjustment can be done by her PCP. Patient with hypothyroidism. At discharge she will continue with levothyroxine [address] scan did reveal a 23 mm nonspecific right adrenal mass, diverticulosis without diverticulitis, and cholelithiasis. This can be further addressed as an outpatient. Will recommend MRI of adrenal mass to further evaluate. This can be done with the help of her PCP. Diverticulosis/Cholelithiasis can be followed up by surgery. Vital Signs/Physical Exam: Temp Pulse Resp BP Pulse Ox 97.8 F 59 18 150/66 H 95 02/04/20 15:10 02/04/20 15:10 02/04/20 15:10 02/04/20 15:10 02/04/20 15:10 General: Alert, In no apparent distress, Oriented x3, Cooperative HEENT: Atraumatic Neck: Supple Respiratory: Clear to auscultation bilaterally, Normal air movement Cardiovascular: Normal pulses, Regular rate/rhythm Gastrointestinal: Normal bowel sounds, Soft and benign, Non-distended, No ascites, No tenderness, No masses, No rebound, No guarding Musculoskeletal: No erythema, No tenderness, No warmth Integumentary: No tenderness/swelling, No erythema, No warmth, No cyanosis Neurological: Normal speech, Normal strength at 5/5 x4 extr, Normal tone, Normal affect Laboratory Data at Discharge: WBC 11.2 K/uL (4.3-10.9) H D 02/04/20 04:24 Hgb 12.3 g/dL (12.0-15.0) 02/04/20 04:24 Hct 37.6 % (36.0-45.0) 02/04/20 04:24 Plt Count 190 K/uL (152-406) 02/04/20 04:24 Sodium 140 mmol/L (136-145) 02/04/20 04:24 Potassium 4.0 mmol/L (3.5-5.1) 02/04/20 04:24 BUN 9 mg/dL (7-18) 02/04/20 04:24 Creatinine 0.95 mg/dL (0.55-1.3) 02/04/20 04:24 Glucose 156 mg/dL (74-106) H 02/04/20 04:24 Magnesium 2.0 mg/dL (1.8-2.4) 02/04/20 04:24 Total Bilirubin 1.0 mg/dL (0.2-1.0) 02/01/20 12:00 AST 14 U/L (15-37) L 02/01/20 12:00 ALT 60 U/L (12-78) 02/01/20 12:00 Alkaline Phosphatase 197 U/L (45-117) H 02/01/20 12:00 Lipase 93 U/L (73-393) 02/01/20 12:00 Home Medications: Levothyroxine [Synthroid*] 125 mcg PO [id number] 02/02/20 Amlodipine Besylate 10 mg PO DAILY 02/04/20 Ciprofloxacin HCl [Cipro 500 MG Tablet] 500 mg PO BID #14 tab 02/04/20 Docusate [Colace Cap*] 100 mg PO DAILY PRN #15 cap 02/04/20 Lactobacillus Acidophilus [Acidophilus Lactobacilli] 1 each PO BID #30 capsule 02/04/20 Omeprazole [Prilosec] 40 mg PO DAILY 02/04/20 metroNIDAZOLE [Flagyl] 500 mg PO Q8H #21 tablet 02/04/20 New Medications: Lactobacillus Acidophilus [Acidophilus Lactobacilli] 1 each PO BID #30 capsule Ciprofloxacin HCl [Cipro 500 MG Tablet] 500 mg PO BID #14 tab Docusate [Colace Cap*] 100 mg PO DAILY PRN #15 cap PRN Reason: Constipation metroNIDAZOLE [Flagyl] 500 mg PO Q8H #21 tablet Patient Discharge Instructions: 1. Follow up with PCP in 1 week to follow up this hospitalization. 2. Patient admitted with left-sided abdominal pain, nausea and vomiting. Patient found to have acute moderate left-sided colitis. Patient required hospitalization. Patient was given IV fluids and antibiotic therapy. Patient also seen by surgery. No surgical intervention was required. Patient did well during the course of her stay. At discharge she is without significant nausea, vomiting or abdominal pain. At discharge she will continue with Cipro 500 mg twice daily and Flagyl 500 mg 3 times a day for 7 days. Education on colitis will be provided. Patient will also be sent home with lactobacillus twice daily. Patient will also be provided docusate 100 mg daily as needed for constipation. It is recommended that the patient follow up with surgery in 2-4 weeks to follow up this hospitalization. Patient will need a colonoscopy in 4-6 weeks to further monitor and address. 3. Patient has GERD with moderate hiatal hernia. This is stable. At discharge she may continue with Prilosec daily. If this persists she may see GI as an outpatient for endoscopy evaluation. 4. Patient with hypertension. This has remained stable. At discharge she will continue with Norvasc 10 mg daily. Recommend to maintain blood pressure less 150/80. Further adjustment can be done by her PCP. 5. Patient with hypothyroidism. At discharge she will continue with levothyroxine [address] scan did reveal a 23 mm nonspecific right adrenal mass, diverticulosis without diverticulitis, and cholelithiasis. This can be further addressed as an outpatient. Will recommend MRI of adrenal mass to further evaluate. This can be done with the help of her PCP. Diverticulosis/Cholelithiasis can be followed up by surgery. Diet: AHA Activity: Ad connie Time spent managing pt's care (in minutes): 55
[2020-02-04 16:36] VITALS: BP 140/69; TEMP 98
== END 2020-02-04 16:23 | disposition home or self-care (01) | DRG 392 ==
LOC: ER 11:29 → ERHOLD 17:40 → 2ND 19:42 → OBSVTOIN 02-03 09:23
PROVIDERS: ADMIT Family Medicine; ATTEND Family Medicine
DX: K52.9 Noninfective gastroenteritis and colitis, unspecified (principal); N39.0 Urinary tract infection, site not specified; I10 Essential (primary) hypertension; K21.9 Gastro-esophageal reflux disease without esophagitis; E86.0 Dehydration; E87.6 Hypokalemia; E03.9 Hypothyroidism, unspecified; D72.829 Elevated white blood cell count, unspecified; Z98.51 Tubal ligation status; K80.20 Calculus of gallbladder without cholecystitis without obstruction; K44.9 Diaphragmatic hernia without obstruction or gangrene; E27.9 Disorder of adrenal gland, unspecified; K57.90 Diverticulosis of intestine, part unspecified, without perforation or abscess without bleeding; Z79.890 Hormone replacement therapy; Z79.899 Other long term (current) drug therapy
CPT/HCPCS: 36415; 74018; 74177; 80048; 80076; 81003; 81015; 82308; 83605; 83690; 83735; 84145; 85025; 87040; 87086; 87088; 96361; 96365; 96366; 96367; 96375; 99285; G0378; J0744; J1650; J2270; J2405; J2543; J7030; Q9967

== ENCOUNTER 2022-11-22 18:02 | Emergency (ER) | payer OTHER ==
--- OUTSIDE RECORDS SUMMARY | 2022-11-22 18:07 | XMS REPORT | Continuity of Care Document ---
:1955 Author Organization [facility] t Address [address] [place] [address] [address] [place] [address] Care Team Providers Name Role Phone BarnstableClaudia elliott Attending Clinician Unavailable Payers Payer Name Policy Type Policy Number Effective Date Expiration Date S [place] [id number] [facility] MEDICARE MB [id number] 2021 [facility] NOVITAS 00:00:00 [place] [id number] [facility] INSURANCE [facility] MEDICARE MB [id number] 2021 [facility] NOVITAS 00:00:[address] - [facility] MEDICARE MB [id number] 2021 [facility] NOVITAS 00:00:00 [place] [id number] [facility] INSURANCE [facility] Problems Condition Condition Condition Status Onset Resolution Last Treating Co mments Source Name Details Category Date Date Treatment Clinician Date Gastroesop GERD Problem Commo n hageal (gastroeso Spirit reflux phageid - [facility] reflux [facility] disease) [facility] Diverticul Diverticul Problem C ommon itis itis [facility] Hypertensi Hypertensi Problem C ommon on on [facility] Depressive Depressive Problem C ommon disorder disorder [facility] Hiatal Hiatal Problem Common hernia hernia [facility] [id number] Gallstones Problem Co [facility] Hypothyroi Hypothyroi Problem C ommon dism dism [facility] [id number] Right Problem Commo n [id number] adrenal [facility] mass [facility] Vitamin D Vitamin D Problem Com mon deficiency deficiency Sp venkat [facility] Irritable Irritable Problem Com mon bowel bowel [facility] syndrome syndrome [facility] Peptic Peptic Problem Common ulcer ulcer [facility] disease disease [facility] [id number] Screening Problem Com mon for breast [facility] cancer [facility] [id number] Allergy to Problem Co [facility] environmen [facility] emerita - [facility] factors [facility] [id number] Shingles Problem Comm on (herpes [facility] zoster) - [facility] polyneurop [facility] Allergies, Adverse Reactions, Alerts This patient has no known allergies or adverse reactions. Social History Social Habit Start Date Stop Date Quantity Comments Source History of Tobacco Use Co [facility] Sex Assigned At Com [facility] Smoking Status Start Date Stop Date Source Former Smoker 2022-07-18 00:00:00 2022-07-18 00:00:00 [facility] Medications Ordered Filled Start Stop Current Ordering Indication Dosage Frequency Signature Comments Components Source Medication Medication Date Date Medication? Clinician (SIG) Name Name Bromfed DM Bromfed DM 2021-09 Bromfed DM 2mg, 30mg, 2mg, 30mg, 2-21 12-28 2mg, 30mg, 10mg/5ml 10mg/5ml 00:00: 00:00 10mg/5ml 00 :00 Acyclovir Acyclovir 2020-09 No 1{table TID Acyclovir 800 MG 800 MG 09-17 t} 800 MG 00:00: 00 Gabapentin Gabapentin 2020-09 No 1{capsu TID Gabapentin 300 MG 300 MG 09-17 le} 300 MG 00:00: 00 Acyclovir Acyclovir 2020-09 No 1{table TID Acyclovir 800 MG 800 MG 09-17 t} 800 MG 00:00: 00 Acyclovir Acyclovir 2020-09 No 1{table TID Acyclovir 800 MG 800 MG 09-17 t} 800 MG 00:00: 00 Gabapentin Gabapentin 2020- No 1{capsu TID Gabapentin 300 MG 300 MG 09-17 le} 300 MG 00:00: 00 Gabapentin Gabapentin 2020- No 1{capsu TID Gabapentin 300 MG 300 MG 09-17 le} 300 MG 00:00: 00 Acyclovir Acyclovir 2020-09 No 1{table TID Acyclovir 800 MG 800 MG 09-17 t} 800 MG 00:00: 00 Gabapentin Gabapentin 2020- No 1{capsu TID Gabapentin 300 MG 300 MG 09-17 le} 300 MG 00:00: 00 Acyclovir Acyclovir 2020-09 No 1{table TID Acyclovir 800 MG 800 MG 09-17 t} 800 MG 00:00: 00 Gabapentin Gabapentin 2020- No 1{capsu TID Gabapentin 300 MG 300 MG 09-17 le} 300 MG 00:00: 00 Acyclovir Acyclovir 2020-09 No 1{table TID Acyclovir 800 MG 800 MG 09-17 t} 800 MG 00:00: 00 Gabapentin Gabapentin 2020- No 1{capsu TID Gabapentin 300 MG 300 MG 09-17 le} 300 MG 00:00: 00 Acyclovir Acyclovir 2020-09 No 1{table TID Acyclovir 800 MG 800 MG 09-17 t} 800 MG 00:00: 00 Gabapentin Gabapentin 2020-09 No 1{capsu TID Gabapentin 300 MG 300 MG 09-17 le} 300 MG 00:00: 00 predniSONE predniSONE 2020-2020- No 1{table QD predniSONE 20 MG 20 MG 09-17 t} 20 MG 00:00: 00:00 00 :00 Calcium-Vit Calcium-Vit No 1{table QD Calcium-Vi tucker D tucker D t_with_ tamin D 600-400 600-400 a_meal} 600-400 MG-UNIT MG-UNIT MG-UNIT Fluticasone Fluticasone No 1{spray QD Fluticason Propionate Propionate _in_eac e 50 MCG/ACT 50 MCG/ACT h_nostr Propionate il} 50 MCG/ACT Levothyroxi Levothyroxi No QD Levothyrox ne Sodium ne Sodium ine Sodium 125 MCG 125 MCG 125 MCG PriLOSEC 20 PriLOSEC 20 No 1{capsu QD PriLOSEC MG MG le} 20 MG Calcium-Vit Calcium-Vit No 1{table QD Calcium-Vi tucker D tucker D t_with_ tamin D 600-400 600-400 a_meal} 600-400 MG-UNIT MG-UNIT MG-UNIT amLODIPine amLODIPine No 1{table QD amLODIPine Besylate 10 Besylate 10 t} Besylate MG MG 10 MG PriLOSEC 20 PriLOSEC 20 No 1{capsu QD PriLOSEC MG MG le} 20 MG Levothyroxi Levothyroxi No QD Levothyrox ne Sodium ne Sodium ine Sodium 125 MCG 125 MCG 125 MCG Fluticasone Fluticasone No 1{spray QD Fluticason Propionate Propionate _in_eac e 50 MCG/ACT 50 MCG/ACT h_nostr Propionate il} 50 MCG/ACT Calcium-Vit Calcium-Vit No 1{table QD Calcium-Vi tucker D tucker D t_with_ tamin D 600-400 600-400 a_meal} 600-400 MG-UNIT MG-UNIT MG-UNIT amLODIPine amLODIPine No 1{table QD amLODIPine Besylate 10 Besylate 10 t} Besylate MG MG 10 MG Levothyroxi Levothyroxi No QD Levothyrox ne Sodium ne Sodium ine Sodium 125 MCG 125 MCG 125 MCG PriLOSEC 20 PriLOSEC 20 No 1{capsu QD PriLOSEC MG MG le} 20 MG Fluticasone Fluticasone No 1{spray QD Fluticason Propionate Propionate _in_eac e 50 MCG/ACT 50 MCG/ACT h_nostr Propionate il} 50 MCG/ACT amLODIPine amLODIPine No amLODIPine Besylate 10 Besylate 10 Besylate MG MG 10 MG PriLOSEC 20 PriLOSEC 20 No 1{capsu QD PriLOSEC MG MG le} 20 MG Levothyroxi Levothyroxi No QD Levothyrox ne Sodium ne Sodium ine Sodium 125 MCG 125 MCG 125 MCG Calcium-Vit Calcium-Vit No 1{table QD Calcium-Vi tucker D tucker D t_with_ tamin D 600-400 600-400 a_meal} 600-400 MG-UNIT MG-UNIT MG-UNIT Levothyroxi Levothyroxi No QD Levothyrox ne Sodium ne Sodium ine Sodium 125 MCG 125 MCG 125 MCG Calcium-Vit Calcium-Vit No 1{table QD Calcium-Vi tucker D tucker D t_with_ tamin D 600-400 600-400 a_meal} 600-400 MG-UNIT MG-UNIT MG-UNIT amLODIPine amLODIPine No amLODIPine Besylate 10 Besylate 10 Besylate MG MG 10 MG PriLOSEC 20 PriLOSEC 20 No 1{capsu QD PriLOSEC MG MG le} 20 MG PriLOSEC 20 PriLOSEC 20 No 1{capsu QD PriLOSEC MG MG le} 20 MG Levothyroxi Levothyroxi No QD Levothyrox ne Sodium ne Sodium ine Sodium 125 MCG 125 MCG 125 MCG amLODIPine amLODIPine No amLODIPine Besylate 10 Besylate 10 Besylate MG MG 10 MG Calcium-Vit Calcium-Vit No 1{table QD Calcium-Vi tucker D tucker D t_with_ tamin D 600-400 600-400 a_meal} 600-400 MG-UNIT MG-UNIT MG-UNIT Calcium-Vit Calcium-Vit No 1{table QD Calcium-Vi tucker D tucker D t_with_ tamin D 600-400 600-400 a_meal} 600-400 MG-UNIT MG-UNIT MG-UNIT PriLOSEC 20 PriLOSEC 20 No 1{capsu QD PriLOSEC MG MG le} 20 MG Fluticasone Fluticasone No 1{spray QD Fluticason Propionate Propionate _in_eac e 50 MCG/ACT 50 MCG/ACT h_nostr Propionate il} 50 MCG/ACT Levothyroxi Levothyroxi No QD Levothyrox ne Sodium ne Sodium ine Sodium 112 MCG 112 MCG 112 MCG amLODIPine amLODIPine No 1{table QD amLODIPine Besylate 10 Besylate 10 t} Besylate MG MG 10 MG Fluticasone Fluticasone No 1{spray QD Fluticason Propionate Propionate _in_eac e 50 MCG/ACT 50 MCG/ACT h_nostr Propionate il} 50 MCG/ACT amLODIPine amLODIPine No 1{table QD amLODIPine Besylate 10 Besylate 10 t} Besylate MG MG 10 MG Levothyroxi Levothyroxi No QD Levothyrox ne Sodium ne Sodium ine Sodium 112 MCG 112 MCG 112 MCG PriLOSEC 20 PriLOSEC 20 No 1{capsu QD PriLOSEC MG MG le} 20 MG Calcium-Vit Calcium-Vit No 1{table QD Calcium-Vi tucker D tucker D t_with_ tamin D 600-400 600-400 a_meal} 600-400 MG-UNIT MG-UNIT MG-UNIT amLODIPine amLODIPine No 1{table QD amLODIPine Besylate 10 Besylate 10 t} Besylate MG MG 10 MG Calcium-Vit Calcium-Vit No 1{table QD Calcium-Vi tucker D tucker D t_with_ tamin D 600-400 600-400 a_meal} 600-400 MG-UNIT MG-UNIT MG-UNIT Fluticasone Fluticasone No 1{spray QD Fluticason Propionate Propionate _in_eac e 50 MCG/ACT 50 MCG/ACT h_nostr Propionate il} 50 MCG/ACT PriLOSEC 20 PriLOSEC 20 No 1{capsu QD PriLOSEC MG MG le} 20 MG Levothyroxi Levothyroxi No QD Levothyrox ne Sodium ne Sodium ine Sodium 125 MCG 125 MCG 125 MCG amLODIPine amLODIPine No 1{table QD amLODIPine Besylate 10 Besylate 10 t} Besylate MG MG 10 MG Calcium-Vit Calcium-Vit No 1{table QD Calcium-Vi tucker D tucker D t_with_ tamin D 600-400 600-400 a_meal} 600-400 MG-UNIT MG-UNIT MG-UNIT Fluticasone Fluticasone No 1{spray QD Fluticason Propionate Propionate _in_eac e 50 MCG/ACT 50 MCG/ACT h_nostr Propionate il} 50 MCG/ACT PriLOSEC 20 PriLOSEC 20 No 1{capsu QD PriLOSEC MG MG le} 20 MG Levothyroxi Levothyroxi No QD Levothyrox ne Sodium ne Sodium ine Sodium 125 MCG 125 MCG 125 MCG amLODIPine amLODIPine No 1{table QD amLODIPine Besylate 10 Besylate 10 t} Besylate MG MG 10 MG Calcium-Vit Calcium-Vit No 1{table QD Calcium-Vi tucker D tucker D t_with_ tamin D 600-400 600-400 a_meal} 600-400 MG-UNIT MG-UNIT MG-UNIT Fluticasone Fluticasone No 1{spray QD Fluticason Propionate Propionate _in_eac e 50 MCG/ACT 50 MCG/ACT h_nostr Propionate il} 50 MCG/ACT Levothyroxi Levothyroxi No QD Levothyrox ne Sodium ne Sodium ine Sodium 125 MCG 125 MCG 125 MCG Amlodipine Amlodipine Yes Claudia 1 tablet Common Besylate Besylate [facility] PriLOSEC 20 PriLOSEC 20 No 1{capsu QD PriLOSEC MG MG le} 20 MG amLODIPine amLODIPine No 1{table QD amLODIPine Besylate 10 Besylate 10 t} Besylate MG MG 10 MG Vital Signs Vital Name Observation Time Observation Value Comments Source height 2022-07-18 13:00:00 69.5 [in_i] [facility] weight 2022-07-18 13:00:00 199.4 [lb_av] [facility] 2022-07-18 13:00:00 29.02 kg/m2 [facility] height 2022-07-17 14:20:00 69.5 [in_i] [facility] weight 2022-07-17 14:20:00 199.4 [lb_av] [facility] temperature 2022-07-17 14:20:00 97.5 [degF] [facility] 2022-07-17 14:20:00 29.02 kg/m2 [facility] oximetry 2022-07-17 14:20:00 98 % [facility] respiratory rate 2022-07-17 14:20:00 17 /min Comm on [facility] blood pressure 2022-07-17 14:20:00 134 mm[Hg] [facility] [place] [place] - systolic [facility] blood pressure 2022-07-17 14:20:00 76 mm[Hg] [facility] diastolic [facility] height 2021-12-21 14:40:00 69.5 [in_i] [facility] weight 2021-12-21 14:40:00 191 [lb_av] [facility] temperature 2021-12-21 14:40:00 98.1 [degF] [facility] bmi 2021-12-21 14:40:00 27.8 kg/m2 [facility] oximetry 2021-12-21 14:40:00 98 % [facility] respiratory rate 2021-12-21 14:40:00 16 /min Comm on [facility] blood pressure 2021-12-21 14:40:00 135 mm[Hg] Common [facility] - systolic [facility] blood pressure 2021-12-21 14:40:00 66 mm[Hg] Common [facility] - diastolic [facility] height 2021-07-18 16:00:00 69.5 [in_i] Common S [facility] weight 2021-07-18 16:00:00 197.6 [lb_av] [facility] temperature 2021-07-18 16:00:00 98.0 [degF] [facility] bmi 2021-07-18 16:00:00 28.76 kg/m2 Common S [facility] oximetry 2021-07-18 16:00:00 98 % Common S [facility] respiratory rate 2021-07-18 16:00:00 16 /min Comm on [facility] blood pressure 2021-07-18 16:00:00 138 mm[Hg] [facility] [place] [place] - systolic [facility] blood pressure 2021-07-18 16:00:00 82 mm[Hg] Common [facility] - diastolic [facility] height 2021-06-19 14:20:00 69.5 [in_i] [facility] weight 2021-06-19 14:20:00 198.8 [lb_av] [facility] temperature 2021-06-19 14:20:00 98.4 [degF] [facility] bmi 2021-06-19 14:20:00 28.93 kg/m2 Common S [facility] oximetry 2021-06-19 14:20:00 98 % Common S [facility] respiratory rate 2021-06-19 14:20:00 16 /min Comm on [facility] blood pressure 2021-06-19 14:20:00 136 mm[Hg] Common [facility] - systolic [facility] blood pressure 2021-06-19 14:20:00 76 mm[Hg] Common [facility] - diastolic [facility] Procedures This patient has no known procedures. Encounters Start End Encounter Admission Attending Care Care Encounter Source Date/Time Date/Time Type Type Clinicians Facility Department ID 2022-08-14 Outpatient [place], STLMLC STLMLC [id number] Common 15:28:00 Claudia [facility] 2022-07-13 Outpatient [place], STLMLC STLMLC [id number] Common 14:51:00 Claudia [facility] 2022-02-07 Outpatient [place], STLMLC STLMLC [id number] Common 14:48:00 Claudia [facility] 2021-10-11 Outpatient [place], STLMLC STLMLC [id number] Common 14:28:06 Claudia [id number] [facility] 2021-10-11 Outpatient [place], STLMLC STLMLC [id number] Common 14:27:33 Claudia [id number] [facility] 2021-10-11 Outpatient [place], STLMLC STLMLC [id number] Common 14:16:14 Claudia [id number] [facility] 2021-10-11 Outpatient [place], STLMLC STLMLC [id number] Common 11:47:24 Claudia [id number] [facility] 2022-09-04 2022-09-04 (TEL) STLMLC STLMLC [id number] Co mmon 00:00:00 00:00:00 [facility] 2022-07-18 2022-07-18 SUB ANNUAL STLMLC STLMLC [id number] Common 00:00:00 00:00:00 [facility] WELLNESS - [facility] VISIT [facility] 2022-07-17 2022-07-17 OFFICE STLMLC STLMLC [id number] Co mmon 00:00:00 00:00:00 VISIT EST Spir it PT LEVEL 3 - [facility] 2022-01-04 2022-01-04 (TEL) STLMLC STLMLC [id number] Co mmon 00:00:00 00:00:00 [facility] 2021-12-21 2021-12-21 OFFICE STLMLC STLMLC [id number] Co mmon 00:00:00 00:00:00 VISIT EST Spir it PT LEVEL 3 - [facility] 2021-10-11 2021-10-11 (TEL) STLMLC STLMLC [id number] Co mmon 00:00:00 00:00:00 [facility] 2021-10-05 2021-10-05 (TEL) STLMLC STLMLC [id number] Co mmon 00:00:00 00:00:00 [facility] 2021-09-26 2021-09-26 (TEL) STLMLC STLMLC [id number] Co mmon 00:00:00 00:00:00 [facility] 2021-08-09 2021-08-09 (TEL) STLMLC STLMLC [id number] Co mmon 00:00:00 00:00:00 [facility] 2021-07-18 2021-07-18 OFFICE STLMLC STLMLC [id number] Co mmon 00:00:00 00:00:00 VISIT EST Spir it PT LEVEL 3 [facility] 2021-06-19 2021-06-19 OFFICE STLMLC STLMLC [id number] Co mmon 00:00:00 00:00:00 [facility] - [facility] LEVEL 4 [facility] 2020-12-13 2020-12-13 Outpatient STLMLC STLMLC [id number] Common 00:00:00 00:00:00 [facility] 2020-12-06 2020-12-06 Outpatient STLMLC STLMLC [id number] Common 00:00:00 00:00:00 [facility] 2020-08-17 2020-08-17 Outpatient STLMLC STLMLC [id number] Common 00:00:00 00:00:00 [facility] 2020-08-15 2020-08-15 Outpatient STLMLC STLMLC [id number] Common 00:00:00 00:00:00 [facility] 2020-06-17 2020-06-17 Outpatient STLMLC STLMLC [id number] Common 00:00:00 00:00:00 [facility] 2020-06-08 2020-06-08 Outpatient STLMLC STLMLC [id number] Common 00:00:00 00:00:00 [facility] 2019-06-16 2019-06-16 [id number] Common 16:50:00 16:50:[address] [facility] 2019-06-05 2019-06-05 [facility] [id number] Common 16:29:00 16:29:[address] [facility] 2019-06-05 2019-06-05 [facility] [id number] Common 16:26:00 16:26:[address] [facility] 2019-06-01 2019-06-01 [facility] [id number] Common 16:20:00 16:20:[address] [facility] 2019-04-16 2019-04-16 [facility] [id number] Common 14:23:00 14:23:[address] [facility] 2018-11-03 2018-11-03 [facility] [id number] Common 13:30:00 13:30:[address] [facility] 2018-04-15 2018-04-15 [facility] [id number] Common 18:09:00 18:09:[address] [facility] 2018-04-10 2018-04-10 [facility] [id number] Common 14:00:00 14:00:[address] [facility] Results This patient has no known results.
[2022-11-22 19:55] LABS: Absolute Lymphocytes (CBC) 1.7 K/uL (0.7-4.9); Hematocrit 41.9 % (36.0-45.0); Lymphocytes % 22.7 % (15.3-44.8); MCV 84.8 fL (80-100); MPV 9.2 fL (7.6-11.3); RBC Red Blood Cell Count 4.94 M/uL (3.86-4.86)
[2022-11-22 20:05] LABS: Albumin 4.3 g/dL (3.4-5.0); Bilirubin Total 0.4 mg/dL (0.2-1.0); Potassium 3.8 mmol/L (3.5-5.1); Protein, Total 8.4 g/dL (6.4-8.2)
--- NOTE | 2022-11-22 21:47 | RAD REPORT ---
[facility]AM DES[facility]: left nasal passage swelling Pain and swelling COMPARISON: No comparisons TECHNIQUE: Axial 2 mm thick images of the face were obtained with sagittal and coronal reconstructio n images. All CT scans are performed using dose optimization technique as appropriate and may include automated exposure control or mA/KV adjustment according to patient size. FINDINGS: There is abnormal hypodense edematous soft tissue appearance filling the left maxillary an trum and extending into the left nasal passage and extending posterior to the to the nasopharynx. There is opacification of the left ethmoid air cells as well. The right-sided paranasal sinuses are c lear. IMPRESSION: Abnormal hypodense soft tissue density is seen filling the left maxillary antrum extendi ng to fill left nasal passage and extending posteriorly to the nasopharynx.This may represent infecti on or polyposis. Direct visualization advised.
[2022-11-22] MEDS ORDERED: METHYLPREDNISOLONE 125 MG INJ ONE (23:22)
[2022-11-22] MEDS ORDERED: NA CHLORIDE 0.9% 50 ML ONE (23:22)
[2022-11-22] MEDS ORDERED: CEFTRIAXONE 1000 MG/VIAL ONE (23:22)
[2022-11-22 23:37] VITALS: TEMP 97.2
[2022-11-22 23:41] VITALS: BP 137/82; O2SAT 98
--- NOTE | 2022-12-07 15:15 | EDPHYS ---
Physician Documentation [facility] Name: Светлана Burns Age: 67 yrs Sex: Female : 1955 Arrival Date: 11/22/2022 Time: 18:11 Bed 10 Private MD: Claudia Duque ED Physician Feng Etienne HPI: 11/22 19:10 This 67 yrs old Female presents to ER via Ambulatory with complaints of Nose Problem. cp 19:10 The patient presents with swelling of left nasal passage. Onset: The symptoms/episode cp began/occurred today, and became worse today. Associated signs and symptoms: Pertinent negatives: fever, colored drainage. Severity of symptoms: in the emergency department the symptoms are unchanged despite home interventions. Patient reports history of chronic sinus drainage. Woke up with fullness to left nasal passage that has increased throughout day. Noticed protruding mass from left nasal passage. Historical: - Allergies: 18:32 No Known Allergies; hb - PMHx: 18:32 Diverticulitis; GERD; Hypertension; hb - Immunization history:: Adult Immunizations up to date. - Social history:: Smoking status: unknown. ROS: 19:15 ENT: Positive for swelling left nasal passage, Negative for drainage from ear(s), ear cp pain, rhinorrhea, difficulty swallowing, difficulty handling secretions. 19:15 Constitutional: Negative for body aches, chills, fever. cp 19:15 Respiratory: Negative for cough, shortness of breath, wheezing. 19:15 Skin: Negative for rash. 19:15 Neuro: Negative for altered mental status, headache, weakness. 19:15 All other systems are negative. Exam: 19:20 Constitutional: The patient appears in no acute distress, alert, awake, comfortable, cp non-toxic, well developed, well nourished. 19:20 Head/Face: Normocephalic, atraumatic. cp 19:20 Eyes: Periorbital structures: appear normal, Conjunctiva: normal, no exudate, no injection, Sclera: no appreciated abnormality, Lids and lashes: appear normal, bilaterally. 19:20 ENT: External ear(s): are unremarkable, Nose: External nose: mild swelling noted left nare, Nasal mucosa: marked swelling with soft, flesh colored protruding mass left nasal passage, bleeding, is not appreciated, nasal drainage, is not appreciated, Mouth: Lips: moist, Oral mucosa: moist, Posterior pharynx: Airway: no evidence of obstruction, patent. 19:20 Neck: ROM/movement: is normal, is supple, without pain, no range of motions limitations, Lymph nodes: no appreciated lymphadenopathy. 19:20 Chest/axilla: Inspection: normal. 19:20 Cardiovascular: Rate: normal, Rhythm: regular. 19:20 Respiratory: the patient does not display signs of respiratory distress, Respirations: normal, no use of accessory muscles, no retractions, labored breathing, is not present. 19:20 Abdomen/GI: Inspection: abdomen appears normal. 19:20 Skin: cellulitis, is not appreciated, no rash present. Vital Signs: 18:31 BP 188 / 76; Pulse 72; Resp 16; Temp 97.2; Pulse Ox 100% on R/A; Weight 88.45 kg; hb Height 5 ft. 11 in. ; Pain 0/10; 19:30 BP 162 / 75; Pulse 68; Resp 16; Pulse Ox 100% on R/A; eh3 20:30 BP 147 / 75; Pulse 62; Resp 16; Pulse Ox 100% on R/A; eh3 21:30 BP 137 / 82; Pulse 56; Resp 16; Pulse Ox 98% on R/A; eh3 18:31 Body Mass Index 27.20 (88.45 kg, 180.34 cm) hb 18:31 Pain Scale: Adult hb MDM: 18:47 Patient medically screened. cp 20:00 Differential diagnosis: foreign body - unresolved, trauma, sinusitis, polyp, abscess, cp cancer. 23:05 Data reviewed: vital signs, nurses notes, lab test result(s), radiologic studies, CT cp scan. 23:05 Consideration of Admission/Observation Escalation of care including cp admission/observation considered. Management of patient was discussed with the following: Personal Property Assessor: DR Davis would like patient to f/u in clinic next week. Start oral Medrol dose Padilla, Augmentin antibiotic and Flonase NS 1 spray each nostril twice daily. Counseling: I had a detailed discussion with the patient and/or guardian regarding: the historical points, exam findings, and any diagnostic results supporting the discharge/admit diagnosis, lab results, radiology results, the need for outpatient follow up, for definitive care, an ENT specialist, to return to the emergency department if symptoms worsen or persist or if there are any questions or concerns that arise at home. 11/22 19:05 Order name: CBC with Diff; Complete Time: 20:06 cp 11/22 19:05 Order name: CMP; Complete Time: 20:06 cp 11/22 19:05 Order name: CT Facial Bones W/ Con \T\ Mpr; Complete Time: 21:53 cp 11/22 19:05 Order name: IV Saline Lock; Complete Time: 19:47 cp 11/22 19:05 Order name: Labs collected and sent; Complete Time: 19:47 cp Administered Medications: 23:10 Drug: Rocephin IV 1 grams Route: IV; Rate: calculated rate; Site: left antecubital; 3 23:30 Follow up: Response: No adverse reaction; IV Status: Completed infusion; IV Intake: [id number] 23:10 Drug: MethylPrednisoLONE IVP 125 mg Route: IVP; Site: left antecubital; 3 23:30 Follow up: Response: No adverse reaction 3 Disposition Summary: 11/22/22 23:07 Discharge Ordered Location: Home cp Problem: new cp Symptoms: are unchanged cp Condition: Stable cp Diagnosis - Unspecified disorder of nose and nasal sinuses cp Followup: cp - With: Allie Davis MD - When: 2 - 3 days - Reason: Recheck today's complaints Discharge Instructions: - Discharge Summary Sheet cp - Sinusitis, Adult cp - Nasal Polyps cp - Postnasal Drip cp Forms: - Medication Reconciliation Form cp - Thank You Letter cp - Antibiotic Education cp - Prescription Opioid Use cp Prescriptions: - Flonase Allergy Relief 50 mcg/actuation Nasal spray, suspension - spray 1 spray by INTRANASAL route 2 times per day administer into each nostril; cp 1 unit; Refills: 0, Product Selection Permitted - Augmentin 875-125 mg Oral Tablet - take 1 tablet by ORAL route every 12 hours for 14 days; 28 tablet; Refills: 0, cp Product Selection Permitted - Medrol (Padilla) 4 mg Oral Tablets, Dose Pack - take 1 tablet by ORAL route as directed - follow package instructions; 1 cp packet; Refills: 0, Product Selection Permitted Signatures: Dispatcher [employer] EDMS Feng Dominguez PA PA cp Baxter, Heather, RN RN Yamilka Llamas RN RN eh3 Corrections: (The following items were deleted from the chart) 21:02 18:35 Immunization history: Adult Immunizations up to date, eh3 eh3 18:35 Social history: Smoking status: unknown eh3 eh3
--- NOTE | 2022-12-07 15:15 | ER ---
Nurse's Notes [facility] Name: Светлана Burns Age: 67 yrs Sex: Female : 1955 Arrival Date: 11/22/2022 Time: 18:11 Bed 10 Private MD: Claudia Duque Diagnosis: Unspecified disorder of nose and nasal sinuses Presentation: 11/22 18:31 Chief complaint: Left nostril swelling and redness since this afternoon. Coronavirus hb screen: At this time, the client does not indicate any symptoms associated with coronavirus-19. Ebola Screen: No symptoms or risks identified at this time. Initial Sepsis Screen: Does the patient meet any 2 criteria? No. Patient's initial sepsis screen is negative. Does the patient have a suspected source of infection? No. Patient's initial sepsis screen is negative. Risk Assessment: Do you want to hurt yourself or someone else? Patient reports no desire to harm self or others. Onset of symptoms was November 22, 2022. 18:31 Method Of Arrival: Ambulatory hb 18:31 Acuity: RAE 4 hb Triage Assessment: 19:30 General: Appears in no apparent distress. uncomfortable, Behavior is calm, cooperative, eh3 appropriate for age. Pain: Denies pain. Historical: - Allergies: 18:32 No Known Allergies; hb - PMHx: 18:32 Diverticulitis; GERD; Hypertension; hb - Immunization history:: Adult Immunizations up to date. - Social history:: Smoking status: unknown. Screenin:30 [facility] ED Fall Risk Assessment (Adult) Score/Fall Risk Level 0 - 2 = Low Risk. Abuse eh3 screen: Denies threats or abuse. Denies injuries from another. Nutritional screening: No deficits noted. Tuberculosis screening: No symptoms or risk factors identified. Assessment: 19:30 General: Appears in no apparent distress. comfortable, Behavior is calm, cooperative, eh3 appropriate for age. Pain: Denies pain. Neuro: Level of Consciousness is awake, alert, obeys commands, Oriented to person, place, time, situation. Cardiovascular: Capillary refill < 3 seconds Patient's skin is warm and dry. Respiratory: Airway is patent Respiratory effort is even, unlabored, Respiratory pattern is regular, symmetrical. GI: Abdomen is round non-distended. : No signs and/or symptoms were reported regarding the genitourinary system. EENT: Nares on left abscess/hematoma in left nare, not obstructing airflow. Derm: Skin is pink, warm \T\ dry. Musculoskeletal: Circulation, motion, and sensation intact. Range of motion: intact in all extremities. 20:30 Reassessment: Patient appears in no apparent distress at this time. Patient and/or eh3 family updated on plan of care and expected duration. Pain level reassessed. Patient is alert, oriented x 3, equal unlabored respirations, skin warm/dry/pink. 21:30 Reassessment: Patient appears in no apparent distress at this time. Patient and/or eh3 family updated on plan of care and expected duration. Pain level reassessed. Patient is alert, oriented x 3, equal unlabored respirations, skin warm/dry/pink. Vital Signs: 18:31 BP 188 / 76; Pulse 72; Resp 16; Temp 97.2; Pulse Ox 100% on R/A; Weight 88.45 kg; hb Height 5 ft. 11 in. ; Pain 0/10; 19:30 BP 162 / 75; Pulse 68; Resp 16; Pulse Ox 100% on R/A; eh3 20:30 BP 147 / 75; Pulse 62; Resp 16; Pulse Ox 100% on R/A; eh3 21:30 BP 137 / 82; Pulse 56; Resp 16; Pulse Ox 98% on R/A; eh3 18:31 Body Mass Index 27.20 (88.45 kg, 180.34 cm) hb 18:31 Pain Scale: Adult hb ED Course: 18:11 Patient arrived in ED. am2 18:12 Claudia Duque FNP-C is Private Physician. am2 18:32 Triage completed. hb 18:35 Arm band placed on. eh3 18:43 Feng Dominguez PA is PHCP. cp 18:43 Luisito Manning MD is Attending Physician. cp 19:15 Yamilka Llamas RN is Primary Nurse. eh3 19:30 Inserted saline lock: 20 gauge in left antecubital area, using aseptic technique. Blood eh3 collected. 19:30 Patient has correct armband on for positive identification. Bed in low position. Call eh3 light in reach. Side rails up X2. Adult w/ patient. Pulse ox on. NIBP on. Door closed. Noise minimized. Lights dimmed. Warm blanket given. 20:06 Feng Etienne MD is Attending Physician. cp 21:41 CT Facial Bones W/ Con \T\ Mpr In Process Unspecified. EDMS 23:06 Allie Davis MD is Referral Physician. cp 23:30 No provider procedures requiring assistance completed. IV discontinued, intact, eh3 bleeding controlled, No redness/swelling at site. Pressure dressing applied. Administered Medications: 23:10 Drug: Rocephin IV 1 grams Route: IV; Rate: calculated rate; Site: left antecubital; eh3 23:30 Follow up: Response: No adverse reaction; IV Status: Completed infusion; IV Intake: [id number] 23:10 Drug: MethylPrednisoLONE IVP 125 mg Route: IVP; Site: left antecubital; eh3 23:30 Follow up: Response: No adverse reaction eh3 Medication: 23:30 VIS not applicable for this client. eh3 Intake: 23:30 IV: 50ml; Total: 50ml. eh3 Outcome: 23:07 Discharge ordered by MD. cp 23:30 Discharged to home ambulatory, with family. eh3 23:30 Condition: stable 23:30 Discharge instructions given to patient, family, Instructed on discharge instructions, follow up and referral plans. medication usage, Demonstrated understanding of instructions, follow-up care, medications, Prescriptions given X 3. 23:30 Patient left the ED. eh3 Signatures: Dispatcher [employer] EDMO Feng Dominguez PA PA cp Digna Flores, MARKUS APARICIO Mena Llamas 2 Yamilka Llamas RN RN eh3 Corrections: (The following items were deleted from the chart) 21:02 18:35 Immunization history: Adult Immunizations up to date, 3 eh3 21:02 18:35 Social history: Smoking status: unknown 3 3 21:02 18:35 General: Appears in no apparent distress. uncomfortable, Behavior is calm, eh3 cooperative, appropriate for age, [facility] 21:02 18:35 Pain: Denies pain. 3 eh3
== END 2022-11-22 23:30 | disposition home or self-care (01) ==
LOC: ER 18:02
DX: J34.89 Other specified disorders of nose and nasal sinuses (principal)
CPT/HCPCS: 96365; 85025; 36415; 80053; 70487; 76377; 96375; 99284; Q9967; J2930